=== PATIENT | male | born 1965 | race Caucasian/White ===

== ENCOUNTER 2022-02-13 21:02 | Emergency (ER) | payer OTHER ==
[2022-02-13 21:41] LABS: BASO # 0.1 10^3/uL (0.0-0.2); BASO % 0.5 % (0.0-1.0); EOS # 0.1 10^3/uL (0.0-0.5); EOS % 1.1 % (0.0-3.0); HEMOGLOBIN 15.1 g/dl (13.5-17.5); LYMPH # 3.7 10^3/uL (1.5-5.0); LYMPH % 39.1 % (24.0-44.0); MEAN CORPUSCULAR HEMOGLOBIN 28.5 pg (27.0-33.0); MEAN CORPUSCULAR HGB CONC 34.3 g/dl (32.0-36.5); MEAN CORPUSCULAR VOLUME 83.2 fl (80.0-96.0); MONO # 0.6 10^3/uL (0.0-0.8); MONO % 6.5 % (2.0-8.0); NEUTROPHILS # 4.9 10^3/uL (1.5-8.5); NEUTROPHILS % 52.4 % (36.0-66.0); PLATELET COUNT, AUTOMATED 315 10^3/uL (150-450); RED BLOOD COUNT 5.29 10^6/uL (4.30-6.10); WHITE BLOOD COUNT 9.4 10^3/uL (4.0-10.0)
[2022-02-13 22:04] LABS: CK-MB VALUE MASS 1.1 NG/ML (<3.6)
[2022-02-13 22:09] LABS: BLOOD UREA NITROGEN 23 MG/DL (9-23); CARBON DIOXIDE LEVEL 17 MMOL/L (20-31); CHLORIDE LEVEL 103 MMOL/L (98-107); CPK CREATINE PHOSPHOKINASE 66 U/L (46-171); CREATININE FOR GFR 0.87 MG/DL (0.70-1.30); GLOMERULAR FILTRATION RATE > 60.0 (>56); GLUCOSE, FASTING 296 MG/DL (60-100); MB/CK RELATIVE INDEX 1.66 (< OR =4); POTASSIUM SERUM 4.2 MMOL/L (3.5-5.1); SODIUM LEVEL 135 MMOL/L (136-145)
[2022-02-13] MEDS ORDERED: ISOVUE-370 76% 100ML VIAL As Ordered ONE (22:20)
[2022-02-13 23:31] LABS: CK-MB VALUE MASS < 1.0 NG/ML (<3.6)
[2022-02-13 23:36] LABS: CPK CREATINE PHOSPHOKINASE 59 U/L (46-171); MB/CK RELATIVE INDEX 1.69 (< OR =4)
[2022-02-14 01:20] LABS: CK-MB VALUE MASS < 1.0 NG/ML (<3.6)
[2022-02-14 01:22] LABS: CPK CREATINE PHOSPHOKINASE 60 U/L (46-171); MB/CK RELATIVE INDEX 1.66 (< OR =4)
[2022-02-14 01:45] VITALS: BP 120/76
== END 2022-02-14 02:24 | disposition home or self-care (01) ==
LOC: M ED 21:02
DX: R06.09 Other forms of dyspnea (principal); I44.0 Atrioventricular block, first degree; I44.4 Left anterior fascicular block; E11.9 Type 2 diabetes mellitus without complications; E78.5 Hyperlipidemia, unspecified; K21.9 Gastro-esophageal reflux disease without esophagitis

== ENCOUNTER → 2022-03-23 | Outpatient (CLI) | payer OTHER | LOC: M SLEEP HO 13:58 | PROVIDERS: ATTEND Internal Medicine Cardiovascular Disease | DX: R06.83 Snoring (principal) ==

== ENCOUNTER → 2022-04-15 | Outpatient (CLI) | payer OTHER | LOC: M RAD 12:25 | PROVIDERS: ATTEND Student in an Organized Health Care Education/Training Program | DX: M54.2 Cervicalgia (principal) ==

== ENCOUNTER → 2024-10-03 | Outpatient (CLI) | payer OTHER | LOC: M EKG 11:32 | PROVIDERS: ATTEND Physician Assistant | DX: I44.1 Atrioventricular block, second degree (principal); R00.1 Bradycardia, unspecified ==

== ENCOUNTER → 2024-11-04 | Outpatient (CLI) | payer OTHER ==
[~2024-11-04] MED LIST: ACET1TAB55; ASPI81CH48; ATOR80TA59; CYCL-707; DICL100G10; EZET10TA21; GABA-1172; GLIP5TAB17; IBUP-1729; LOSA50TA28; OMEP-173; SILD100T; SYNJ1TAB15; TIRZ5PEN
== END ==
LOC: M SLEEP HO 09:42
PROVIDERS: ATTEND Physician Assistant
DX: G47.33 Obstructive sleep apnea (adult) (pediatric) (principal)

== ENCOUNTER → 2024-11-05 | Outpatient (CLI) | payer OTHER | LOC: M PLAIMG 12:41 | PROVIDERS: ATTEND Physician Assistant | DX: I34.0 Nonrheumatic mitral (valve) insufficiency (principal); I27.20 Pulmonary hypertension, unspecified; I44.1 Atrioventricular block, second degree ==

== ENCOUNTER 2024-11-17 12:03 | Day surgery (SDC) | payer OTHER ==
[~2024-11-17] VITALS: Ht 175.3 cm; Wt 117.1 kg
[~2024-11-17 12:03] MED LIST changes: -EZET10TA21; +EZET10TA57
[2024-11-17] MEDS: LR 1,000 ML IV SCH (12:40)
[2024-11-17] MEDS: LIDOCAINE 1% SDV 30 ML VIAL As Ordered ONE (13:10)
[2024-11-17] MEDS ORDERED: ISOVUE-M 300 61% 15 ML VIAL IV ONE (13:11)
[2024-11-17] MEDS ORDERED: ISOVUE-300 61% 100 ML VIAL As Ordered ONE (13:11)
[2024-11-17] MEDS ORDERED: MIDAZOLAM INJ 2 MG/2 ML VIAL As Ordered ONE (13:24)
[2024-11-17] MEDS ORDERED: LIDOCAINE 2% 100 MG/5 ML SDV (FOR ANES.) As Ordered ONE (13:24)
[2024-11-17] MEDS: ceFAZolin SOD 2 GM IV ONCE IV ONE (13:50)
[2024-11-17] MEDS ORDERED: ACETAMINOPHEN 1000MG/100ML IV BAG As Ordered ONE (14:00)
[2024-11-17] MEDS ORDERED: LR 1,000 ML IV SCH (15:35)
[2024-11-17 16:30] VITALS: BP 166/78; TEMP 96.8; O2SAT 100
== END 2024-11-17 16:50 | disposition home or self-care (01) ==
LOC: M SDC 12:03
PROVIDERS: ATTEND Internal Medicine Cardiovascular Disease
DX: I44.1 Atrioventricular block, second degree (principal); I34.0 Nonrheumatic mitral (valve) insufficiency; K21.9 Gastro-esophageal reflux disease without esophagitis; G47.33 Obstructive sleep apnea (adult) (pediatric); E78.5 Hyperlipidemia, unspecified; E11.9 Type 2 diabetes mellitus without complications; G62.9 Polyneuropathy, unspecified; M19.90 Unspecified osteoarthritis, unspecified site; Z79.84 Long term (current) use of oral hypoglycemic drugs; Z79.899 Other long term (current) drug therapy
CPT/HCPCS: 33208; 71045; 76000; 93005; C1785; C1898; J0131; J0690; J2250; J3010; Q9967